=== PATIENT | male | born 1955 | race Two or more races ===

== ENCOUNTER 2017-09-02 00:45 | Inpatient (IN) | payer SELFPAY ==
[~2017-09-02] VITALS: Ht 182.9 cm; Wt 69.0 kg
[~2017-09-02 00:45] MED LIST: Amoxicillin500 MG PO; Bactrim Ds Tab1 EACH PO; Percocet 5-3251 EACH PO; Zithromax250 MG PO
[2017-09-02] MEDS ORDERED: Hair, Skin & N1 EACH PO (01:06)
[2017-09-02 01:45] LABS: BASOPHILS ABSOLUTE AUTO 0.01 K/mm3 (0.00-0.23); BASOPHILS PERCENT AUTO 0 % (0-2); EOSINOPHILS ABSOLUTE AUTO 0.03 K/mm3 (0.00-0.68); EOSINOPHILS PERCENT AUTO 0 % (0-6); Hematocrit 41.1 % (37.0-53.0); Hemoglobin 13.7 g/dL (13.5-17.5); IMMATURE GRAN ABSOLUTE AUTO 0.07 K/mm3 (0.00-0.10); IMMATURE GRAN PERCENT AUTO 1 % (0-1); LYMPHOCYTES ABSOLUTE AUTO 0.81 K/mm3 (0.84-5.20); LYMPHOCYTES PERCENT AUTO 8 % (21-46); MONOCYTES ABSOLUTE AUTO 0.81 K/mm3 (0.16-1.47); MONOCYTES PERCENT AUTO 8 % (4-13); Mean Corpuscular HGB Conc 33.3 g/dL (31.5-36.5); Mean Corpuscular Volume 90 fL (80-100); NEUTROPHILS ABSOLUTE AUTO 8.24 K/mm3 (1.96-9.15); NEUTROPHILS PERCENT AUTO 83 % (41-73); Platelet Count 167 K/mm3 (150-400); RDW Coefficient Variation 14.8 % (11.7-14.2); RDW Standard Deviation 49.1 fL (35.1-46.3); Red Blood Cell Count 4.56 M/mm3 (4.30-5.90); White Blood Cell Count 9.97 K/mm3 (4.00-11.30)
[2017-09-02 02:03] LABS: Alanine Aminotransfer (ALT/SGP 26 U/L (12-78); Albumin, Blood 3.4 g/dL (3.4-5.0); Albumin/Globulin Ratio 0.8 (0.8-1.8); Alk Phos 78 U/L (50-136); Anion Gap 6 mmol/L (6-16); Aspartate Aminotrans (AST/SGOT 24 U/L (12-37); Bilirubin, Total 0.6 mg/dL (0.1-1.0); Blood Urea Nitrogen 12 mg/dL (8-24); Bun/Creatinine Ratio 13.7 (12.0-20.0); CO2, Blood 25 mmol/L (21-32); Calcium, Blood 8.5 mg/dL (8.5-10.1); Chloride, Blood 105 mmol/L (98-108); Creatinine, Blood 0.88 mg/dL (0.60-1.20); Globulin, Blood 4.5 g/dL (2.2-4.0); Glomerular Filtration Rate >60 (60-); Glucose, Blood 105 mg/dL (70-99); Potassium, Blood 4.2 mmol/L (3.5-5.5); Sodium, Blood 136 mmol/L (136-145); Total Protein, Blood 7.9 g/dL (6.4-8.2)
[2017-09-02 02:55] LABS: Source, Urine Voided
[2017-09-02 02:57] LABS: Bilirubin, Urine Neg (Neg); Blood, Urine Neg (Neg); Glucose Qualitative, Urine Neg (Neg); Ketones, Urine 3+ (Neg); Leukocyte Esterase, Urine Neg (Neg); Nitrite, Urine Neg (Neg); Protein, Urine Neg (Neg); Urobilinogen, Urine NORM (Normal)
[2017-09-02 03:02] LABS: Appearance, Urine Clear (Clear); Color, Urine Yellow (P-Yellow)
[2017-09-02 05:16] LABS: Prothrombin Time Results 10.4 Sec (9.7-11.5)
[2017-09-02 06:16] LABS: BASOPHILS ABSOLUTE AUTO 0.01 K/mm3 (0.00-0.23); BASOPHILS PERCENT AUTO 0 % (0-2); EOSINOPHILS ABSOLUTE AUTO 0.01 K/mm3 (0.00-0.68); EOSINOPHILS PERCENT AUTO 0 % (0-6); Hematocrit 38.9 % (37.0-53.0); Hemoglobin 12.8 g/dL (13.5-17.5); IMMATURE GRAN ABSOLUTE AUTO 0.06 K/mm3 (0.00-0.10); IMMATURE GRAN PERCENT AUTO 1 % (0-1); LYMPHOCYTES ABSOLUTE AUTO 1.12 K/mm3 (0.84-5.20); LYMPHOCYTES PERCENT AUTO 11 % (21-46); MONOCYTES ABSOLUTE AUTO 0.95 K/mm3 (0.16-1.47); MONOCYTES PERCENT AUTO 9 % (4-13); Mean Corpuscular HGB Conc 32.9 g/dL (31.5-36.5); Mean Corpuscular Volume 91 fL (80-100); Mean Platelet Volume 9.5 fL (9.1-12.4); NEUTROPHILS ABSOLUTE AUTO 8.17 K/mm3 (1.96-9.15); NEUTROPHILS PERCENT AUTO 79 % (41-73); Platelet Count 153 K/mm3 (150-400); RDW Coefficient Variation 15.2 % (11.7-14.2); RDW Standard Deviation 50.5 fL (35.1-46.3); Red Blood Cell Count 4.26 M/mm3 (4.30-5.90); White Blood Cell Count 10.32 K/mm3 (4.00-11.30)
[2017-09-02 06:30] LABS: Anion Gap 5 mmol/L (6-16); Blood Urea Nitrogen 12 mg/dL (8-24); Bun/Creatinine Ratio 12.8 (12.0-20.0); CO2, Blood 25 mmol/L (21-32); Calcium, Blood 7.6 mg/dL (8.5-10.1); Chloride, Blood 106 mmol/L (98-108); Creatinine, Blood 0.94 mg/dL (0.60-1.20); Glomerular Filtration Rate >60 (60-); Glucose, Blood 111 mg/dL (70-99); Potassium, Blood 4.1 mmol/L (3.5-5.5); Sodium, Blood 136 mmol/L (136-145)
[2017-09-03 04:42] LABS: BASOPHILS ABSOLUTE AUTO 0.01 K/mm3 (0.00-0.23); BASOPHILS PERCENT AUTO 0 % (0-2); EOSINOPHILS ABSOLUTE AUTO 0.04 K/mm3 (0.00-0.68); EOSINOPHILS PERCENT AUTO 1 % (0-6); Hemoglobin 12.6 g/dL (13.5-17.5); IMMATURE GRAN ABSOLUTE AUTO 0.05 K/mm3 (0.00-0.10); IMMATURE GRAN PERCENT AUTO 1 % (0-1); LYMPHOCYTES ABSOLUTE AUTO 0.78 K/mm3 (0.84-5.20); LYMPHOCYTES PERCENT AUTO 13 % (21-46); MONOCYTES ABSOLUTE AUTO 0.64 K/mm3 (0.16-1.47); MONOCYTES PERCENT AUTO 11 % (4-13); Mean Corpuscular HGB Conc 32.3 g/dL (31.5-36.5); Mean Corpuscular Volume 93 fL (80-100); Mean Platelet Volume 9.7 fL (9.1-12.4); NEUTROPHILS ABSOLUTE AUTO 4.28 K/mm3 (1.96-9.15); NEUTROPHILS PERCENT AUTO 74 % (41-73); Platelet Count 154 K/mm3 (150-400); RDW Coefficient Variation 15.4 % (11.7-14.2); RDW Standard Deviation 52.8 fL (35.1-46.3)
[2017-09-03 05:11] LABS: Anion Gap 5 mmol/L (6-16); Blood Urea Nitrogen 8 mg/dL (8-24); Bun/Creatinine Ratio 8.7 (12.0-20.0); CO2, Blood 24 mmol/L (21-32); Calcium, Blood 7.2 mg/dL (8.5-10.1); Chloride, Blood 110 mmol/L (98-108); Creatinine, Blood 0.92 mg/dL (0.60-1.20); Glomerular Filtration Rate >60 (60-); Glucose, Blood 79 mg/dL (70-99); Potassium, Blood 3.8 mmol/L (3.5-5.5); Sodium, Blood 139 mmol/L (136-145)
[2017-09-06 21:00] LABS: Adenovirus F 40/41 Not Detected (NOT DETECT); Astrovirus Not Detected (NOT DETECT); Campylobacter Sp Not Detected (NOT DETECT); Cryptosporidium Not Detected (NOT DETECT); Cyclospora Cayetanensis Not Detected (NOT DETECT); E. Coli O157 Not Detected (NOT DETECT); Entamoeba Histolytica Not Detected (NOT DETECT); Enteroaggregative E. coli-EAEC Not Detected (NOT DETECT); Enteropathogenic E. coli-EPEC Not Detected (NOT DETECT); Enterotoxigenic E. coli-ETEC Not Detected (NOT DETECT); Giardia Lamblia Not Detected (NOT DETECT); Norovirus GI/GII Not Detected (NOT DETECT); Plesiomonas Shigelloides Not Detected (NOT DETECT); Rotavirus A Not Detected (NOT DETECT); Salmonella Sp Not Detected (NOT DETECT); Sapovirus Not Detected (NOT DETECT); Shiga Toxin-prod E. coli-STEC Not Detected (NOT DETECT); Shigella/Enteroin E. coli-EIEC Not Detected (NOT DETECT); Vibrio Cholerae Not Detected (NOT DETECT); Vibrio Sp Not Detected (NOT DETECT); Yersinia Enterocolitica Not Detected (NOT DETECT)
[2017-09-07 03:57] LABS: BASOPHILS ABSOLUTE AUTO 0.02 K/mm3 (0.00-0.23); BASOPHILS PERCENT AUTO 0 % (0-2); EOSINOPHILS PERCENT AUTO 0 % (0-6); Hematocrit 46.3 % (37.0-53.0); Hemoglobin 15.5 g/dL (13.5-17.5); IMMATURE GRAN ABSOLUTE AUTO 0.08 K/mm3 (0.00-0.10); IMMATURE GRAN PERCENT AUTO 1 % (0-1); LYMPHOCYTES PERCENT AUTO 5 % (21-46); MONOCYTES ABSOLUTE AUTO 0.43 K/mm3 (0.16-1.47); MONOCYTES PERCENT AUTO 4 % (4-13); Mean Corpuscular HGB 29.9 pg (26.0-34.0); Mean Corpuscular HGB Conc 33.5 g/dL (31.5-36.5); Mean Corpuscular Volume 89 fL (80-100); NEUTROPHILS ABSOLUTE AUTO 10.68 K/mm3 (1.96-9.15); NEUTROPHILS PERCENT AUTO 90 % (41-73); Platelet Count 184 K/mm3 (150-400); RDW Coefficient Variation 14.7 % (11.7-14.2); RDW Standard Deviation 47.8 fL (35.1-46.3); Red Blood Cell Count 5.19 M/mm3 (4.30-5.90); White Blood Cell Count 11.81 K/mm3 (4.00-11.30)
[2017-09-07 04:22] LABS: Anion Gap 6 mmol/L (6-16); Blood Urea Nitrogen 12 mg/dL (8-24); Bun/Creatinine Ratio 16.4 (12.0-20.0); CO2, Blood 24 mmol/L (21-32); Calcium, Blood 7.8 mg/dL (8.5-10.1); Chloride, Blood 108 mmol/L (98-108); Creatinine, Blood 0.73 mg/dL (0.60-1.20); Glomerular Filtration Rate >60 (60-); Glucose, Blood 149 mg/dL (70-99); Potassium, Blood 3.9 mmol/L (3.5-5.5); Sodium, Blood 138 mmol/L (136-145)
[2017-09-08] MEDS ORDERED: HYDR1TAB94 PO (08:21)
[2017-09-08] MEDS ORDERED: SACC250C PO (08:22)
[2017-09-08] MEDS ORDERED: Augmentin 875-1 EACH PO (08:22)
[2017-09-08] MEDS ORDERED: PRED20 PO (08:24)
== END 2017-09-08 10:03 | disposition home or self-care (01) | DRG 392 ==
LOC: ER 00:45 → MEDS 04:58 → ENPENDDIS 09-08 08:31 → MEDS 09-08 10:03
PROVIDERS: Emergency Medicine; Family Medicine; Hospitalist; Internal Medicine; Internal Medicine Gastroenterology
PROC: 0DBN8ZX Excision of Sigmoid Colon, Via Natural or Artificial Opening Endoscopic, Diagnostic (ICD-10-PCS; principal; 2017-09-07 07:30)
DX: K52.9 Noninfective gastroenteritis and colitis, unspecified (principal); F17.210 Nicotine dependence, cigarettes, uncomplicated; K57.90 Diverticulosis of intestine, part unspecified, without perforation or abscess without bleeding
CPT/HCPCS: 36415; 51798; 74177; 80048; 80053; 81003; 83605; 83690; 85025; 85610; 85730; 87493; 87507; 88305; 96361; 96365; 96367; 96375; 96376; 99285; J0500; J0744; J1956; J2270; J2405; J2543; J2765; J2920; J2930; J3010; J7030; J7120; Q9967

== ENCOUNTER 2017-09-13 23:05 | Inpatient (IN) | END 2017-09-21 14:10 | disposition home health service (06) | DRG 853 ==

== ENCOUNTER → 2018-08-06 | Outpatient (CLI) | payer OTHER ==
[~2018-08-06] MED LIST changes: +Augmentin 875-1 EACH PO; +CALCIUM WITH D PO; +CYCL10 PO; +DOCU100 PO; +GERITOL PO; +HYDR1TAB94 PO; +Hair, Skin & N1 EACH PO; +MEGACE PO; +NYSTATIN S SS; +Nicoderm Cq1 EAC1 TOP; +PRED20 PO; +SACC250C PO; +[UNRECOGNIZED DRUG - OTHER] SS
[2018-08-08 09:11] LABS: COTININE Negative ng/mL (Cutoff=300)
== END | disposition home or self-care (01) ==
LOC: LAB 11:20 → LAB SHORT 11:20
PROVIDERS: Surgery
DX: Z01.812 Encounter for preprocedural laboratory examination (principal); F17.200 Nicotine dependence, unspecified, uncomplicated

== ENCOUNTER 2018-09-04 10:14 | Day surgery (SDC) | payer OTHER ==
[~2018-09-04] VITALS: Ht 182.9 cm; Wt 73.3 kg
[~2018-09-04 10:14] MED LIST changes: +AMLO5 PO; +BIKTARVY 50-201 EACH PO; +CITA20 PO; +Mobic15 MG PO; +TRAZ100 PO
--- NOTE | 2018-09-04 11:28 | NUR ---
PATIENT GAVE PERMISSION FOR ME TO CARE FOR HIM TODAY 09/04/18. History, Chart, Medications and Allergies reviewed before start of procedure.Patient confirms NPO status and agrees with scheduled surgery. Patient states colon prep results clear.Lungs clear T/O to Auscultation.
--- NOTE | 2018-09-04 11:47 | NUR ---
STUDENT RN ASSISTING IN PREOPERATIVE CARE. AGREE WITH HER CHARTING AND CARE
--- NOTE | 2018-09-04 12:18 | NUR ---
09/04/18 1217 Jenny Richardson History, Chart, Medications and Allergies reviewed before start of procedure. Patient confirms NPO status and agrees with scheduled surgery. PATIENT DETERMINED TO BE ASA APPROPRIATE FOR PROPOFOL SEDATION PRIOR TO START OF PROCEDURE BY DR. RIOS. 3-LEAD EKG REVIEWED WITH PHYSICIAN PRIOR TO START OF PROCEDURE. MONITOR INTACT WITH CONTINUOUS PULSE OXIMETRY AND INTERMITTENT BP.
--- NOTE | 2018-09-04 12:53 | NUR ---
TOLERTATING SIPS OF CLEAR LIQUID SODA. NO C/O.
--- NOTE | 2018-09-04 13:02 | NUR ---
Discharge instructions reviewed with patient. Patient verbalizes understanding. Copy given to patient to take home. Patient States Post-Procedure ride home has been arranged with his significant other.
--- NOTE | 2018-09-04 13:15 | NUR ---
1310- UP TO DRESS. GAIT STEADY. VSS.
== END 2018-09-04 13:13 | disposition home or self-care (01) ==
LOC: ORSCMMR 10:14 → ORD 12:00 → ORSCMMR 13:13
PROVIDERS: Surgery
PROC: 0DJD8ZZ Inspection of Lower Intestinal Tract, Via Natural or Artificial Opening Endoscopic (ICD-10-PCS; principal; 2018-09-04 12:00)
DX: Z12.11 Encounter for screening for malignant neoplasm of colon (principal); Z01.818 Encounter for other preprocedural examination; K57.30 Diverticulosis of large intestine without perforation or abscess without bleeding; Z93.3 Colostomy status; B20 Human immunodeficiency virus [HIV] disease; Z79.899 Other long term (current) drug therapy
CPT/HCPCS: J2704; J7120

== ENCOUNTER 2018-09-05 05:55 | Inpatient (IN) | payer OTHER ==
--- NOTE | 2018-09-05 06:42 | NUR ---
History, Chart, Medications and Allergies reviewed before start of procedure. Lungs clear T/O to Auscultation. Patient confirms NPO status and agrees with scheduled surgery. Patient reports completing Chlorhexadine shower X2 prior to admission to hospital.
--- NOTE | 2018-09-05 13:01 | NUR ---
1230-PT HAS NO SENSATION OR MOVEMENT FROM UPPER CHEST DOWN TO TOES. DR. BURNETT NOTIFIED AND EPIDURAL INFUSION TO BE WITHHELD UNTIL 1330.
--- NOTE | 2018-09-05 16:54 | NUR ---
PT HAS BEEN STABLE POST OP. PT HAS DECREASED SENSATION FROM T7-S1. STARTING TO WIGGLE TOES AND FEEL PRESSURE IN ABDOMEN. EPIDERAL SITE WNL. SURGEON IN TO SEE PATIENT THIS EVENING. PT TAKING ICE CHIPS, MAY ADVANCE TO CLEAR LIQUIDS. NO NAUSEA. CONT IV FLUIDS ORDERED. MAY SL WHEN TAKING PO WELL. PT HAS PRAVENA WOUND VAC X2 TO ABDOMEN CDI. TERRAZAS DRAINING WELL. USES CALL LIGHT APPROPRIATELY NEEDED.
--- NOTE | 2018-09-06 02:44 | NUR ---
PROVIDER COMMUNICATION APPROX. 0240 DR. BURNETT NOTIFIED BUBLE AROUND INSERTION SITE OF EPIDURAL WITH FLUID NOTED AND DRESSING NOT ADHERING TO SKIN, BUT EDGES OF DRESSING INTACT. OVER SHIFT, SLIGHTLY PINK DRAINAGE LEAKED OUT ONTO PAD APPROX. 2X2 INCH; NEXT ASSESSMENT SHOWED 4X4 AREA OF DRAINAGE. EDGES RESEALED. PAIN INCREASED FROM 1 TO 2/10. SENSATION UNCHANGED. ASSESSMENT FOR THIS HOUR, SCANT DRAINAGE AT EPIDURAL SITE CHANGED TO RED COLOR, NO LEAKING NOTED; PAIN AND SENSATION UNCHANGED. ORDER TO REINFORCE DRESSING IF IT COMES LOOSE. WCTM.
[2018-09-06 03:52] LABS: BASOPHILS ABSOLUTE AUTO 0.01 K/mm3 (0.00-0.23); BASOPHILS PERCENT AUTO 0 % (0-2); EOSINOPHILS PERCENT AUTO 0 % (0-6); Hematocrit 44.3 % (37.0-53.0); IMMATURE GRAN PERCENT AUTO 1 % (0-1); LYMPHOCYTES ABSOLUTE AUTO 1.07 K/mm3 (0.84-5.20); LYMPHOCYTES PERCENT AUTO 7 % (21-46); MONOCYTES ABSOLUTE AUTO 1.25 K/mm3 (0.16-1.47); MONOCYTES PERCENT AUTO 9 % (4-13); Mean Corpuscular HGB 30.7 pg (26.0-34.0); Mean Corpuscular HGB Conc 31.6 g/dL (31.5-36.5); Mean Platelet Volume 9.3 fL (9.1-12.4); NEUTROPHILS ABSOLUTE AUTO 12.35 K/mm3 (1.96-9.15); NEUTROPHILS PERCENT AUTO 84 % (41-73); Platelet Count 234 K/mm3 (150-400); RDW Coefficient Variation 15.5 % (11.7-14.2); RDW Standard Deviation 55.8 fL (35.1-46.3); Red Blood Cell Count 4.56 M/mm3 (4.30-5.90); White Blood Cell Count 14.78 K/mm3 (4.00-11.30)
[2018-09-06 03:53] LABS: Mean Corpuscular Volume 97 fL (80-100)
[2018-09-06 04:14] LABS: Anion Gap 4 mmol/L (6-16); Blood Urea Nitrogen 12 mg/dL (8-24); Bun/Creatinine Ratio 12.9 (12.0-20.0); CO2, Blood 27 mmol/L (21-32); Calcium, Blood 8.1 mg/dL (8.5-10.1); Chloride, Blood 106 mmol/L (98-108); Creatinine, Blood 0.93 mg/dL (0.60-1.20); Glomerular Filtration Rate >60 (60-); Glucose, Blood 127 mg/dL (70-99); Potassium, Blood 4.5 mmol/L (3.5-5.5); Sodium, Blood 137 mmol/L (136-145)
--- NOTE | 2018-09-06 05:53 | NUR ---
SHIFT SUMMARY PT A&O X4 T/O SHIFT. POD#1 OSTOMY TAKE DOWN. ABD SOFT; SLIGHT DISTENTION; PT DENIES FLATUS; CLEAR LIQUID. PREVENA WOUND VACS X2 TO ABD CDI; SEALS INTACT. VSS. SMALL AMOUNT OF DRAINAGE OUT OF EPIDURAL; RED DRAINAGE NOTED IN BUBBLE AT EPIDURAL INSERTION SITE NOTED. SEE NOTE REGARDING PROVIDER COMMUNICATION. EPIDURAL CHECKS; IMPROVEMENT SCD'S TO BLE'S. TERRAZAS DRAINING WELL. PT MARCOS NAUSEA, CP AND SOB. CALL LIGHT IN REACH; PT DEMONSTRATES USE.
--- NOTE | 2018-09-06 11:01 | NUR ---
After meeting patient's s/o in the hallway yesterday who requested a visit, I did so today. Patient is sitting up in bed and alert. Patient shares about his medical history and how he is feeling hopeful about his recovery. I listened empathically, provided companionship and encouraged self-care. I will continue to remain available to patient and family.
--- NOTE | 2018-09-06 19:50 | NUR ---
SUMMARY POD #1 PT'S EPIDURAL HAS BEEN ADJUSTED THROUGH OUT THE DAY DUE TO PAIN CONTROL ISSUES AND PT C/O NUMBNESS TO LEFT LEG. PT'S SENSATION HAS RETURNED TO BOTH LEGS AFTER DECREASING THE RATE HOWEVER PAIN HAS INCREASED. ANESTHESIA HAS BEEN NOTIFIED EACH TIME. EPIDURAL INCREASED THIS AFTERNOON, CONTINUOUS EDUCATION PROVIDED ABOUT EXPECTED PAIN CONTROL. PT STATES HE IS COMFORTABLE AT THIS TIME. NO NAUSEA NOTED THROUGH THE DAY. KATARZYNA CISSE'S X2, SUCTION INTACT. REPORT GIVEN TO NOC RN
--- NOTE | 2018-09-06 22:00 | NUR ---
2200: PT REPORTS WET SHEET WHILE STAFF ROUNDING AND IS FOUND TO HAVE PULLED EPIDURAL FROM INSERTION SITE WELL TUBING COMING DISCONNECTED. TAPE REMOVED AND LUMBAR SITE COVERED WITH BANDAID, APPEARS DRY. PT RATES PAIN 3/10 AND ACCEPTABLE CURRENTLY. CALL TO DR. RIOS FOR NEW PAIN MEDS.
--- NOTE | 2018-09-07 05:20 | NUR ---
0520: PT SENSATION INTACT AND DENIES NUMBNESS OR TINGLING IN EXTREMITIES. NINI CORCORAN'Kaela NOW, 6 HOURS AFTER EPIDURAL DC. PT AMBULATES WITH GB AND FWW 2 PERSON ASSIST TO BATHROOM AND APPEARS WEAK BUT STEADY ON FEET. PT PASSES MODERATE AMOUNT OF GAS AND BLOODY LIQUID WHILE ON TOILET. DENIES ABD CRAMPING AND RATES ABD PAIN 1/10 WITH FENTANYL CISCO NETWORK ARCHITECT. PT SEATED IN RECLINER CHAIR WITH FEET UP.
--- NOTE | 2018-09-07 07:30 | NUR ---
SUMMARY: POD [address] RIOS. VSS, APPEARS BORDERLINE HYPERTENSIVE @ TIMES, AFEBRILE. PAIN WELL CONTROLLED TO 3 OR 1/10 LEVEL WITH FENTANYL NETWORK LIAISON AFTER EPIDURAL PULLED @ 2200 BY PT MOVEMENT. TERRAZAS DC'D THIS AM, PT PASSED MODERATE AMOUNT OF GAS AND BLOODY LIQUID STOOL WITH BRP THIS MORNING. UP WITH 2 ASSIST AND FWW TO CHAIR. TOLERATING CLEARS AND DENIES N/V. UP TO CHAIR THIS MORNING.
--- NOTE | 2018-09-07 18:44 | NUR ---
SHIFT SUMMARY PT A&OX4, VSS, POD2 COLOSTOMY TAKEDOWN WITH PREVENA. PAIN MANAGED WITH FENT BARREL FINISHER. SHARA FULL LIQ DIET, DENIES N&V. VOIDING WELL. AMB SBA FOR LINES/CORDS TO BRP/URINAL AT BEDSIDE AND PT EDU/ENC TO USE IT. UP TO CHAIR FOR LUNCH, AND WALKED BOWSER X1. WCTM AND TX PER EMAR UNTIL REPORT GIVEN TO ONCOMING MARIA ELENA RN.
--- NOTE | 2018-09-08 07:17 | NUR ---
SHIFT SUMMARY PT IS POD 3 COLOSTOMY TAKEDOWN. FENTANYL ACTIVITY THERAPY TEACHER IN PLACE W/ DEMAND DOSING, PT HAS BEEN COMFORTABLE T/O THE NIGHT. WILL BE TRIALING ORALS TODAY. PT TOLERATING FULL LIQUIDS, DENIES N/V, PASSING FLATUS. 2 PREVENAS PRESENT, BOTH C/D/I. SLEPT WELL OVERNIGHT WITH HOME DOSE OF TRAZADONE. PT IS A&O, MAKES NEEDS KNOWN. REPORT PASSED TO ONCOMING SHIFT.
--- NOTE | 2018-09-08 10:20 | NUR ---
PT OUT OF HOME MED BIKTARVANI. STATES IT GETS DELIVERED TO HIS HOME AND HE WILL GET IT IN SOMETIME TONIGHT. UP IN CHAIR TOLERATING REGULAR DIET WITH NO COMPLAINTS OF N/V
--- NOTE | 2018-09-08 11:08 | NUR ---
dr mitchell by to see pt
--- NOTE | 2018-09-08 14:27 | NUR ---
pt sitting up in chair stated pain is min with po meds 0-1/10 still passing flatus no bm today no nausea pt asked if he might get to go home tomorrow
--- NOTE | 2018-09-08 15:27 | NUR ---
ASSUMED CARE OF PT FROM FRANKLYN MARTINEZ.
--- NOTE | 2018-09-08 17:24 | NUR ---
SHIFT SUMMARY PT AMBULATING THROUGH HALLWAY X 3 THIS SHIFT. NO ACUTE CHANGES, VSS, TOLERATING REG DIET WITH NO C/O N/V. SWITCHED FROM POCKETS AND PIECES NECKTIE OPERATOR TO ORAL PAIN MEDS AND TORADOL. PT STATES ADEQUATE PAIN CONTROL AT THIS TIME.
--- NOTE | 2018-09-09 06:22 | NUR ---
SHIFT SUMMARY PT IS POD 4 COLOSTOMY CLOSURE. PT'S PAIN WELL MANAGED WITH PO MEDS. PT INDEP IN THE ROOM, SL, A&O. SHARA REG DIET. PT PASSING FLATUS, HYPERACTIVE BT. PREVENA WOUND VACS TO ABD. WILL CTM UNTIL PASS TO NEXT SHIFT.
[2018-09-09] MEDS ORDERED: Percocet 5-3251 EACH PO (13:36)
--- NOTE | 2018-09-09 14:00 | NUR ---
DISCHARGE PT DISCHARGED TO HOME WTH SIGNIFICANT OTHER. VSS, D/C INSTRUCTIONS PROVIDED, RX GIVEN, PT WAS GIVEN HIS HOME RX FROM THE DRAWER. PROVENA WOUND VAC X2 INTACT, PT TOLERATING REGULAR DIET, PAIN MANAGED WITH PO MEDICATION. PT ENCOURAGED TO F/U [facility] FOR ANY PROBLEMS OR CONCERNS.
== END 2018-09-09 14:30 | disposition home or self-care (01) | DRG 330 ==
LOC: SURS 05:55 → PRE IP 07:30 → SURS 13:16
PROVIDERS: ADMIT Surgery
PROC: 0DQM0ZZ Repair Descending Colon, Open Approach (ICD-10-PCS; principal; 2018-09-05 07:30)
DX: Z43.3 Encounter for attention to colostomy (principal); B18.1 Chronic viral hepatitis B without delta-agent; Z21 Asymptomatic human immunodeficiency virus [HIV] infection status; Z87.891 Personal history of nicotine dependence; F41.9 Anxiety disorder, unspecified
CPT/HCPCS: 36415; 80048; 85025; J0295; J1100; J1650; J1885; J2250; J2370; J2405; J2704; J3010; J7030; J7120; V2790

== ENCOUNTER 2018-10-29 06:59 | Inpatient (IN) | payer OTHER ==
[~2018-10-29] VITALS: Ht 182.9 cm; Wt 65.0 kg
[2018-10-29] MEDS ORDERED: TRAZ150T57 PO (07:14)
[2018-10-29] MEDS ORDERED: Megestrol400 MG/10 PO (07:16)
[2018-10-29 07:41] LABS: BASOPHILS ABSOLUTE AUTO 0.05 K/mm3 (0.00-0.23); BASOPHILS PERCENT AUTO 1 % (0-2); EOSINOPHILS ABSOLUTE AUTO 0.26 K/mm3 (0.00-0.68); EOSINOPHILS PERCENT AUTO 4 % (0-6); Hematocrit 47.1 % (37.0-53.0); Hemoglobin 15.2 g/dL (13.5-17.5); IMMATURE GRAN ABSOLUTE AUTO 0.04 K/mm3 (0.00-0.10); IMMATURE GRAN PERCENT AUTO 1 % (0-1); LYMPHOCYTES ABSOLUTE AUTO 3.21 K/mm3 (0.84-5.20); LYMPHOCYTES PERCENT AUTO 43 % (21-46); MONOCYTES ABSOLUTE AUTO 0.78 K/mm3 (0.16-1.47); MONOCYTES PERCENT AUTO 11 % (4-13); Mean Corpuscular HGB 29.8 pg (26.0-34.0); Mean Corpuscular HGB Conc 32.3 g/dL (31.5-36.5); Mean Corpuscular Volume 92 fL (80-100); Mean Platelet Volume 9.3 fL (9.1-12.4); NEUTROPHILS ABSOLUTE AUTO 3.05 K/mm3 (1.96-9.15); NEUTROPHILS PERCENT AUTO 41 % (41-73); Platelet Count 226 K/mm3 (150-400); RDW Coefficient Variation 15.2 % (11.7-14.2); RDW Standard Deviation 51.6 fL (35.1-46.3); White Blood Cell Count 7.39 K/mm3 (4.00-11.30)
[2018-10-29 07:53] LABS: Source, Urine Clean Catch
[2018-10-29 07:57] LABS: Bilirubin, Urine Neg (Neg); Blood, Urine 1+ (Neg); Glucose Qualitative, Urine Neg (Neg); Ketones, Urine Neg (Neg); Leukocyte Esterase, Urine Neg (Neg); Nitrite, Urine Neg (Neg); Protein, Urine Neg (Neg); Urobilinogen, Urine NORM (Normal)
[2018-10-29 07:57] LABS: Ethanol (Alcohol), Blood, Med <3 mg/dL; Salicylate 6.7 mg/dL (2.8-20.0)
[2018-10-29 08:00] LABS: Thyroid Stimulating Hormone 0.813 uIU/mL (0.360-4.800)
[2018-10-29 08:03] LABS: Acetaminophen, Random <2.0 ug/mL (10.0-30.0); Alanine Aminotransfer (ALT/SGP 20 U/L (12-78); Albumin, Blood 4.2 g/dL (3.4-5.0); Albumin/Globulin Ratio 1.2 (0.8-1.8); Alk Phos 89 U/L (50-136); Anion Gap 4 mmol/L (6-16); Aspartate Aminotrans (AST/SGOT 28 U/L (12-37); Bilirubin, Total 0.3 mg/dL (0.1-1.0); Blood Urea Nitrogen 15 mg/dL (8-24); Bun/Creatinine Ratio 14.6 (12.0-20.0); CO2, Blood 23 mmol/L (21-32); Calcium, Blood 8.9 mg/dL (8.5-10.1); Chloride, Blood 110 mmol/L (98-108); Creatinine, Blood 1.03 mg/dL (0.60-1.20); Globulin, Blood 3.5 g/dL (2.2-4.0); Glomerular Filtration Rate >60 (60-); Glucose, Blood 105 mg/dL (70-99); Potassium, Blood 4.2 mmol/L (3.5-5.5); Sodium, Blood 137 mmol/L (136-145); Total Protein, Blood 7.7 g/dL (6.4-8.2)
[2018-10-29 08:12] LABS: Appearance, Urine Clear (Clear); Color, Urine Yellow (P-Yellow); U Amphetamine Screen Not Detected; U Barbituate Screen Not Detected; U Benzodiazapine Screen DETECTED; U Buprenorphine Screen Not Detected; U Cannabinoids Screen DETECTED; U Cocaine Screen Not Detected; U Methadone Screen Not Detected; U Methamphetamine Screen Not Detected; U Opiates Screen Not Detected; U Oxycodone Screen Not Detected; U Phencyclidine Screen Not Detected; U Propoxyphene Screen Not Detected
[2018-10-29 08:14] LABS: Bacteria Rare /hpf; Red Blood Cells, Urine 0-2 /hpf (0-2); Squamous Epithelial Cells Not Seen /hpf (Few); White Blood Cells, Urine 0-2 /hpf (0-5)
[2018-10-29 10:12] LABS: Creatine Kinase MB 2.6 ng/mL (0.0-3.6); Creatine Kinase MB Index 0.3 (0.0-4.0)
[2018-10-29 11:27] LABS: Automated CSF WBC Count 0.015 K/mm3 (0-5); WBC Count, CSF 15 /mm3 (0-5)
[2018-10-29 11:28] LABS: Glucose, CSF 62 mg/dL (40-70)
[2018-10-29 11:55] LABS: Appearance, CSF Hazy (Clear); Color, CSF No Color (No Color)
[2018-10-29 11:55] LABS: PCO2 Arterial 37.4 mmHg (35-45); PO2 Arterial 123 mmHg (80-100)
[2018-10-29 11:56] LABS: RBC Count, CSF 625 /mm3 (0-0)
[2018-10-29 12:07] LABS: Appearance, CSF Clear (Clear); Color, CSF No Color (No Color)
[2018-10-29 12:08] LABS: RBC Count, CSF 217 /mm3 (0-0); WBC Count, CSF 7 /mm3 (0-5)
[2018-10-29 12:18] LABS: Lymphocytes, CSF 63 % (40-80); Monocytes, CSF 9 % (15-45); Neutrophils, CSF 26 % (0-6); Other Cells, CSF 1 % (0-1)
[2018-10-29 12:26] LABS: Lymphocytes, CSF 63 % (40-80); Monocytes, CSF 25 % (15-45); Neutrophils, CSF 13 % (0-6)
--- NOTE | 2018-10-29 12:40 | NUR ---
Patient arrived around 1145 and was intubated and sedated. He has 8.0 ET and 27 cm at lips. His vent settings are AC 16, TV 400, FiO2 35% and PEEP 5.0 and sats mid 90%'s. He 18ga IV in LAC dressing intact and site WNL infusing Abx, he also has 18ga IV RFA dressing intact and site WNL's and is infusing Propofol at 50 mcg/kg min. He has Temp montes draining to gravity yellow urine. He responds to movement and painful stimuli, but not verbal stimuli. Significant other in room and helped with admits.
[2018-10-29 12:41] LABS: Cryptococcus Neoformans/Gattii Not Detected (NOT DETECT); Enterovirus Not Detected (NOT DETECT); Escherichia Coli K1 Not Detected (NOT DETECT); Haemophilus Influenza Not Detected (NOT DETECT); Herpes Simplex Virus 1 Not Detected (NOT DETECT); Herpes Simplex Virus 2 Not Detected (NOT DETECT); Human Herpesvirus 6 Not Detected (NOT DETECT); Human Parechovirus Not Detected (NOT DETECT); Listeria Monocytogenes Not Detected (NOT DETECT); Neisseria Meningitidis Not Detected (NOT DETECT); Streptococcus Agalactiae Not Detected (NOT DETECT); Streptococcus Pneumoniae Not Detected (NOT DETECT); Varicella Zoster Virus Not Detected (NOT DETECT)
--- NOTE | 2018-10-29 14:00 | NUR ---
No significant changes with patient, no vent or gtt changes and patient is resting on sedation well and sats mid to upper 90%'s
--- NOTE | 2018-10-29 15:15 | NUR ---
Pt and spouse are well known to me from previous hospitalizations. Met with Lc, spouse, at bedside. Pt vented and non-responsive. Lc was talkative and told me about the past few days of turmoil. He is grateful Tavon is here and getting medical attention. Encouraged self-care now that pt is safe and cared-for by excellent nursing. Lc responded well to theraputic listening and suggestions. I will remain available.
--- NOTE | 2018-10-29 16:00 | NUR ---
Patient started on banana bag and then will switch over to LR at 150ml/hr. No changes in vent settings abd still sats mid to upper 90%'s. Systolic 90-120's and MAP >65 and HR in the 80's. SCD's bilaterally to LE's. Propofol remains at 50 mcg/kg/min.
--- NOTE | 2018-10-29 16:00 | NUR ---
Patient resting and no significant chyanges.
--- NOTE | 2018-10-29 18:11 | NUR ---
Gave first dose of anti viral through OG tube after changing to new one as the old one was coiled in mouth. Patient tolerated well. Will leave clamped and then LIS after one hour. No other changes.
--- NOTE | 2018-10-29 19:31 | NUR ---
ASSUMED CARE RECEIVED REPORT FROM SHARDA. PT IS SEDATED WITH PROPOFOL 50MCG/KG/MIN ON MECHANICAL VENTILATION, AC16/400/5/30%. 8.0 ETT, 27 AT TEETH. BANANA BAG ALSO INFUSING AT 200ML/HR, TO BE FOLLOWED BY LR AT 150ML/HR. PT IS IN DROPLET ISOLATIONS. THREE PERIPHERAL IV SITES ARE WNL. SCD'S ARE ON. TERRAZAS BAG PATENT AND HANGING TO GRAVITY. SUCTION EQUIPMENT WORKING PROPERLY. OG TUBE IS CURRENTLY OFF SUCTION, BUT IS TO BE PUT ON LIS. NO FAMILY AT BEDSIDE. BED LOW AND LOCKED.
--- NOTE | 2018-10-29 22:18 | NUR ---
SEDATION VACATION PROPOFOL TURNED TO 40 FOR APPROX. 10 MINUTES. PT WAS ABLE TO FOLLOW BASIC COMMANDS, WIGGLE TOES, SQUEEZE AND LET GO OF MY FINGERS. BUT GOT INCREASINGLY AGITATED AND STARTED THRASHING AROUND. HE KEPT FIGHTING THE VENT, AND COUGHING VERY HARSLY. PT GOT RED AND WAS FIGHTING HARD. ATIVAN GIVEN TO HELP GET PT BACK TO ADEQUATE SEDATION. AT BEDSIDE AND WITNESSED EVENT. HE UNDERSTANDS WHY THE PT REQUIRES MECHANICAL VENTILATION AT THIS TIME. PROPOFOL TURNED BACK UP TO 50.
--- NOTE | 2018-10-30 01:27 | NUR ---
UPDATE NO ACUTE CHANGES. PT IS ADEQUATELY SEDATED WITH A SERGEY OF 3; PROPOFOL REMAINS AT 50MCG/KG/MIN. CNVI = O. BP/HR STABLE; HR INCREASED TO 80-90'S THE LAST FEW HOURS, BUT IS NOW BACK DOWN TO 70'S. IS SLEEPING AT BEDSIDE.
[2018-10-30 03:33] LABS: BASOPHILS ABSOLUTE AUTO 0.04 K/mm3 (0.00-0.23); BASOPHILS PERCENT AUTO 1 % (0-2); EOSINOPHILS ABSOLUTE AUTO 0.25 K/mm3 (0.00-0.68); EOSINOPHILS PERCENT AUTO 4 % (0-6); Hematocrit 44.7 % (37.0-53.0); Hemoglobin 14.1 g/dL (13.5-17.5); IMMATURE GRAN ABSOLUTE AUTO 0.03 K/mm3 (0.00-0.10); IMMATURE GRAN PERCENT AUTO 1 % (0-1); LYMPHOCYTES ABSOLUTE AUTO 0.92 K/mm3 (0.84-5.20); LYMPHOCYTES PERCENT AUTO 15 % (21-46); MONOCYTES ABSOLUTE AUTO 0.61 K/mm3 (0.16-1.47); MONOCYTES PERCENT AUTO 10 % (4-13); Mean Corpuscular HGB 30.3 pg (26.0-34.0); Mean Corpuscular HGB Conc 31.5 g/dL (31.5-36.5); Mean Platelet Volume 9.4 fL (9.1-12.4); NEUTROPHILS ABSOLUTE AUTO 4.44 K/mm3 (1.96-9.15); NEUTROPHILS PERCENT AUTO 71 % (41-73); Platelet Count 198 K/mm3 (150-400); RDW Coefficient Variation 15.9 % (11.7-14.2); RDW Standard Deviation 56.5 fL (35.1-46.3); Red Blood Cell Count 4.65 M/mm3 (4.30-5.90); White Blood Cell Count 6.29 K/mm3 (4.00-11.30)
[2018-10-30 03:34] LABS: Mean Corpuscular Volume 96 fL (80-100)
[2018-10-30 03:52] LABS: Alanine Aminotransfer (ALT/SGP 16 U/L (12-78); Alk Phos 71 U/L (50-136); Anion Gap 5 mmol/L (6-16); Aspartate Aminotrans (AST/SGOT 19 U/L (12-37); Bilirubin, Total 0.5 mg/dL (0.1-1.0); Blood Urea Nitrogen 9 mg/dL (8-24); Bun/Creatinine Ratio 11.5 (12.0-20.0); CO2, Blood 24 mmol/L (21-32); Calcium, Blood 8.1 mg/dL (8.5-10.1); Chloride, Blood 113 mmol/L (98-108); Creatinine, Blood 0.79 mg/dL (0.60-1.20); Glomerular Filtration Rate >60 (60-); Glucose, Blood 92 mg/dL (70-99); Magnesium, Blood 2.2 mg/dL (1.6-2.4); Phosphorus, Blood 3.6 mg/dL (2.5-4.9); Potassium, Blood 3.9 mmol/L (3.5-5.5); Sodium, Blood 142 mmol/L (136-145)
--- NOTE | 2018-10-30 04:55 | NUR ---
SBT/UPDATE PT WAS PUT ON A SPONTANEOUS BREATHING TRIAL FROM APPROX. [id number]; PROPOFOL WAS TITRATED DOWN TO 25MCG/KG/MIN, D/T ANXIETY/AGITATION WHEN COMPLETELY OFF. PT DID WELL ON SBT (SEE RT NOTE). PT REMAINED RELATIVELY CALM THE WHOLE TIME, ALTHOUGH FAIRLY RESTLESS.
[2018-10-30 05:05] LABS: PO2 Arterial 66.2 mmHg (80-100); pH Blood Arterial 7.44 (7.35-7.45)
--- NOTE | 2018-10-30 06:19 | NUR ---
SHIFT SUMMARY PT REMAINS INTUBATED WITH 8.0 ETT, 27 @ TEETH. VENT SETTINGS: AC16/400/50/25%. CURRENT GTTPS: LR @ 150ML/HR, AND PROPOFOL 50MCG/KG/MIN. PT UNDERWENT A SEDATION VACATION AND SBT OVER NIGHT. WITH SEDATION TITRATED DOWN, PT IS ABLE TO FOLLOW COMMANDS, OPEN EYES TO VOICE, AND NOD (SOMETIMES) TO YES/NO QUESTIONS. PT REMAINS IN NSR, WITH GOOD BLOOD PRESSURES (SEE VS). NOT MUCH SECRETIONS FROM TRACHEA OR ORAL CAVITY. WILL FIGHT VENT WHEN SEDATION IS WEANED. PT HAS OG TUBE ON LIS, SUCTIONING BROWNISH-GREEN CONTENTS. PT HAD 1200ML UOP OVERNIGHT, AND ~3L OF IVF INTAKE. PT IS FLUID POSITIVE APPROX 1.8L. SLEPT IN ROOM OVERNIGHT. BED IS LOW AND LOCKED.
--- NOTE | 2018-10-30 07:30 | NUR ---
Recieved report from Gerald ESTES. Patient remains intubated and lightly sedated and is able to respond to questions with yes and no answers. He has 8.0 ET and27 cm at lips, His vent settings are AC 16, TV 400, FiO2 25% peep 5.0 and sats 99%. Significant other at [facility] sleeping. He has 18ga LAC dressing intact and site WNL's infusing LR at 150ml/hr. He has FS 20ga in left lower FA dressing intact and site WNL's infuing Propofol at 50 mcg/kg/min. He also has 18ga IV RFA dressing intact and site WNL's flushed and SL'd. He has 16Fr Temp montes draining to gravity yellow urine. He has bilateral soft wrist restraint for tube and line protection. He has bilateral SCD to LE's.
--- NOTE | 2018-10-30 09:30 | NUR ---
Propofol placed on standby at 0825 and extubated at 0855 and was on Ra at 99%. LR dropped to 75ml/hr and abx started. 0900 tolerated liquids and was upto bathroom with SBA and tolerated well. He got up and got into street cloths. Talked to Dr Coon and he stated that DR Watt is going to discharge home stable.
--- NOTE | 2018-10-30 11:30 | NUR ---
Patient significant other called to come and get him. All three IV's pullewd intact and wrapped in gauze and coban. He is independent in room. I and Dr Watt talked with patient to follow up with PCP and try to refrain from marijuana and alcohol while recovering. He returned understanding and ambulated to exit and went home.
--- NOTE | 2018-10-30 11:58 | NUR ---
Recieved report from Gerald ESTES. Patient remains intubated and lightly sedated and is able to respond to questions with yes and no answers. He has 8.0 ET and27 cm at lips, His vent settings are AC 16, TV 400, FiO2 25% peep 5.0 and sats 99%. Significant other at [facility] sleeping. He has 18ga LAC dressing intact and site WNL's infusing LR at 150ml/hr. He has FS 20ga in left lower FA dressing intact and site WNL's infuing Propofol at 50 mcg/kg/min. He also has 18ga IV RFA dressing intact and site WNL's flushed and SL'd. He has 16Fr Temp montes draining to gravity yellow urine. He has bilateral soft wrist restraint for tube and line protection. He has bilateral SCD to LE's.
== END 2018-10-30 11:28 | disposition home or self-care (01) | DRG 896 ==
LOC: ER 06:59 → ICUE 09:57 → ICUW 09:57 → ICUE 11:30
PROVIDERS: Emergency Medicine; Internal Medicine Critical Care Medicine; ADMIT Hospitalist
PROC: 0BH17EZ Insertion of Endotracheal Airway into Trachea, Via Natural or Artificial Opening (ICD-10-PCS; principal; 2018-10-29)
PROC: 5A1935Z Respiratory Ventilation, Less than 24 Consecutive Hours (ICD-10-PCS; 2018-10-29)
PROC: 009U3ZX Drainage of Spinal Canal, Percutaneous Approach, Diagnostic (ICD-10-PCS; 2018-10-29)
DX: F10.231 Alcohol dependence with withdrawal delirium (principal); G92 Toxic encephalopathy; J96.02 Acute respiratory failure with hypercapnia; J96.01 Acute respiratory failure with hypoxia; B20 Human immunodeficiency virus [HIV] disease; F02.81 Dementia in other diseases classified elsewhere, unspecified severity, with behavioral disturbance; I10 Essential (primary) hypertension; F32.9 Major depressive disorder, single episode, unspecified; Z87.891 Personal history of nicotine dependence
CPT/HCPCS: 31500; 31720; 36415; 36600; 51702; 62270; 70450; 71045; 80053; 81001; 82140; 82330; 82550; 82553; 82803; 82945; 83735; 84100; 84157; 84443; 85025; 87070; 87205; 87483; 89051; 93005; 93010; 94002; 94003; 96361-59; 96365-59; 96367-59; 96368; 96375-59; 96376-59; 99291-25; 99292; C9113; G0480; J0133; J0290; J0692; J0696; J1200; J1630; J1650; J2060; J2704; J3370; J3411; J3475; J7030; J7042; J7050; J7060; J7120; J8499

== ENCOUNTER 2019-11-02 11:09 | Emergency (ER) | payer OTHER ==
[~2019-11-02] VITALS: Ht 182.9 cm; Wt 72.6 kg
[~2019-11-02 11:09] MED LIST changes: +Megestrol400 MG/10 PO; +TRAZ150T57 PO
[2019-11-02] MEDS ORDERED: KEFLEX500 MG PO (11:34)
[2019-11-02] MEDS ORDERED: Cleocin HCl300 MG PO (11:34)
== END 2019-11-02 11:45 | disposition home or self-care (01) ==
LOC: ER 11:09
DX: L03.116 Cellulitis of left lower limb (principal); I10 Essential (primary) hypertension; F32.9 Major depressive disorder, single episode, unspecified; F17.200 Nicotine dependence, unspecified, uncomplicated; Z79.899 Other long term (current) drug therapy
CPT/HCPCS: 99283

== ENCOUNTER 2019-11-17 10:07 | Emergency (ER) | payer OTHER ==
[~2019-11-17] VITALS: Ht 182.9 cm; Wt 71.7 kg
[~2019-11-17 10:07] MED LIST changes: +Cleocin HCl300 MG PO; +KEFLEX500 MG PO
[2019-11-17 11:22] LABS: BASOPHILS ABSOLUTE AUTO 0.03 K/mm3 (0.00-0.23); BASOPHILS PERCENT AUTO 0 % (0-2); EOSINOPHILS ABSOLUTE AUTO 0.09 K/mm3 (0.00-0.68); EOSINOPHILS PERCENT AUTO 1 % (0-6); Hematocrit 47.8 % (37.0-53.0); IMMATURE GRAN ABSOLUTE AUTO 0.08 K/mm3 (0.00-0.10); IMMATURE GRAN PERCENT AUTO 1 % (0-1); LYMPHOCYTES ABSOLUTE AUTO 1.13 K/mm3 (0.84-5.20); LYMPHOCYTES PERCENT AUTO 12 % (21-46); MONOCYTES ABSOLUTE AUTO 1.04 K/mm3 (0.16-1.47); MONOCYTES PERCENT AUTO 11 % (4-13); Mean Corpuscular HGB 30.6 pg (26.0-34.0); Mean Corpuscular HGB Conc 31.4 g/dL (31.5-36.5); Mean Corpuscular Volume 98 fL (80-100); Mean Platelet Volume 8.7 fL (9.1-12.4); NEUTROPHILS ABSOLUTE AUTO 7.24 K/mm3 (1.96-9.15); NEUTROPHILS PERCENT AUTO 75 % (41-73); Platelet Count 276 K/mm3 (150-400); RDW Coefficient Variation 14.9 % (11.7-14.2); RDW Standard Deviation 53.8 fL (35.1-46.3); White Blood Cell Count 9.61 K/mm3 (4.00-11.30)
[2019-11-17 11:33] LABS: Anion Gap 3 mmol/L (6-16); Blood Urea Nitrogen 11 mg/dL (8-24); CO2, Blood 24 mmol/L (21-32); Calcium, Blood 8.3 mg/dL (8.5-10.1); Chloride, Blood 110 mmol/L (98-108); Glomerular Filtration Rate >60 (60-); Glucose, Blood 114 mg/dL (70-99); Potassium, Blood 4.5 mmol/L (3.5-5.5); Sodium, Blood 137 mmol/L (136-145)
[2019-11-17] MEDS ORDERED: Monodox100 MG PO (11:48)
[2019-11-17] MEDS ORDERED: AMOCLA875 PO (11:48)
== END 2019-11-17 12:05 | disposition home or self-care (01) ==
LOC: ER 10:07
PROVIDERS: Physician Assistant
DX: L03.116 Cellulitis of left lower limb (principal); Z79.899 Other long term (current) drug therapy; Z79.2 Long term (current) use of antibiotics; F17.210 Nicotine dependence, cigarettes, uncomplicated
CPT/HCPCS: 36415; 80048; 85025; 99283-25

== ENCOUNTER 2021-10-25 15:14 | Emergency (ER) | payer OTHER ==
[~2021-10-25] VITALS: Ht 182.9 cm; Wt 67.6 kg
[~2021-10-25 15:14] MED LIST changes: +AMOCLA875 PO; +Monodox100 MG PO
[2021-10-25] MEDS ORDERED: CEPH500 PO (15:22)
== END 2021-10-25 15:22 | disposition home or self-care (01) ==
LOC: ER 15:14
DX: L03.116 Cellulitis of left lower limb (principal); I10 Essential (primary) hypertension; F17.210 Nicotine dependence, cigarettes, uncomplicated; Z79.899 Other long term (current) drug therapy
CPT/HCPCS: 99281

== ENCOUNTER 2024-07-05 08:36 | Day surgery (SDC) | payer MEDICARE, OTHER ==
[~2024-07-05] VITALS: Ht 182.9 cm; Wt 67.7 kg
[~2024-07-05 08:36] MED LIST changes: +CEPH500 PO; +Glycopyrrolate 0.2 MG/ML 1MLVIAL ONE; +Lactated Ringer's 1,000 ML IV ONE; +Lidocaine 2% 5 ML SDV ONE; +Lidocaine HCl/Pf 1% 5 ML VIAL ONE; +Ondansetron HCl 2 MG / ML 2ML Vial ONE; +ePHEDrine Sulfate 50 MG/ML 1ML Injection ONE; +propofoL 50 ML IV ONE
[2024-07-05] MEDS ORDERED: BUPR75 (08:59)
[2024-07-05] MEDS ORDERED: DICL75ER (09:02)
[2024-07-05] MEDS ORDERED: ALBU90OI (09:03)
[2024-07-05] MEDS ORDERED: SILD50TA (09:04)
[2024-07-05] MEDS ORDERED: GABA100 (09:04)
[2024-07-05] MEDS ORDERED: MIRT15ST (09:04)
[2024-07-05] MEDS ORDERED: Lactated Ringer's 1,000 ML IV ONE (09:41)
[2024-07-05 11:03] VITALS: BP 122/83
== END 2024-07-05 10:55 | disposition home or self-care (01) ==
LOC: ORSCSDS 08:36
PROVIDERS: Surgery
PROC: 0DJD8ZZ Inspection of Lower Intestinal Tract, Via Natural or Artificial Opening Endoscopic (ICD-10-PCS; principal; 2024-07-05 10:30)
DX: Z12.11 Encounter for screening for malignant neoplasm of colon (principal); B20 Human immunodeficiency virus [HIV] disease; K62.4 Stenosis of anus and rectum; I10 Essential (primary) hypertension; Z87.891 Personal history of nicotine dependence; Z79.899 Other long term (current) drug therapy
CPT/HCPCS: J2003; J2405; J2704; J7120